=== PATIENT | male | born 1965 | race Hispanic/Latino ===

== ENCOUNTER 2017-08-10 07:43 | Inpatient (IN) | payer MEDICAID, MEDICARE ==
[2017-08-10 08:05] LABS: #Basophils 0.1 thou/uL (0.0-0.2); #Eosinphils 0.4 thou/uL (0.0-0.7); #Lymphocytes 1.9 thou/uL (1.20-3.40); #Monocytes 0.6 thou/uL (0.11-0.59); #Neutrophils 4.6 thou/uL (1.40-6.50); %Basophils 0.7 % (0.0-1.0); %Eosinophils 5.3 % (0.0-10.0); %Lymphocytes 25.6 % (21.0-51.0); %Monocytes 7.8 % (0.0-10.0); %Neutrophils 60.6 % (42.0-75.0); Mean Corpuscular HGB CONC 34.2 g/dL (32.0-36.0); Mean Corpuscular Hemoglobin 31.9 pg (27.0-31.0); Mean Corpuscular Volume 93.5 fl (80.0-94.0); Mean Platelet Volume 10.2 fL (7.4-10.4); Platelet Count 97 thou/uL (130-400); RBC Distribution Width 14.2 % (11.5-14.5); Red Blood Cell (RBC) Count 3.75 mill/uL (4.70-6.10); White Blood Cell (WBC) Count 7.6 thou/uL (4.8-10.8)
[2017-08-10 08:09] LABS: INR-International Normal Ratio 1.1; Prothrombin Time 13.9 SEC (12.0-14.7)
[2017-08-10 08:15] LABS: ALT (SGPT) 8 U/L (8-55); AST (SGOT) 13 U/L (5-34); Albumin 4.4 g/dL (3.5-5.0); Alkaline Phosphatase 108 U/L (40-150); Anion Gap 20 mmol/L (10-20); BUN (Urea Nitrogen) 41 mg/dL (8.9-20.6); Bilirubin, Total 0.6 mg/dL (0.2-1.2); Calc. Creatinine Clearance 0 mL/min (70-130); Calcium 8.9 mg/dL (7.8-10.44); Carbon Dioxide 25 mmol/L (22-29); Chloride 97 mmol/L (98-107); Estimated GFR-MDRD 8; Globulin 3.4 g/dL (2.4-3.5); Glucose 158 mg/dL (70-105); Protein, Total 7.8 g/dL (6.0-8.3); Sodium 138 mmol/L (136-145)
[2017-08-10 08:19] LABS: CKMB 1.6 ng/mL (0-6.6); Troponin I 0.056 ng/mL (< 0.028)
[2017-08-10 08:30] LABS: Bilirubin Negative (Negative); Blood, Urine Trace (Negative); Clarity CLEAR (Clear); Glucose, Urine (Dipstick) 100 mg/dL (Negative); Leukocyte Negative (Negative); Nitrite Negative (Negative); Protein, Urine (Dipstick) 300 mg/dL (Neg-Trace); Specific Gravity, Urine 1.009 (1.002-1.036); Urobilinogen 0.2 mg/dL (0.2-1.0)
[2017-08-10 08:33] LABS: Bacteria/HPF None Seen HPF (None Seen); Hyaline Casts/LPF 0-3 HYALINE CAST LPF (0-3 Hyaline); Pathc Cast-AUWi Flag 0.43 (0-2.49); RBC/HPF 0-3 HPF (0-3); Squamous Epithelial 0-3 HPF (0-3); WBC/HPF 0-3 HPF (0-3)
[2017-08-10 08:39] LABS: Actual Bicarbonate (HCO3a) 27.4 mEq/L (22-28); Base Excess (BEa) -0.4 mEq/L (-2.0 to +3.0); CO2 Tension 60.8 mmHg (35.0-45.0); O2 Tension (PaO2) 64.3 mmHg (80.0-100.0); pH, Arterial 7.28 (7.35-7.45)
[2017-08-10 08:40] LABS: Analyzer IN Cardio ER; Calcium, Ionized 1.1 mmol/L (1.12-1.30); Puncture Site RRA
--- NOTE | 2017-08-10 08:42 | CT ---
CT BRAIN WITHOUT CONTRAST: History: Sudden onset right sided weakness. Patient was last seen normal 20 minutes ago. FINDINGS: Comparison is made with exam of 04-13-12. Acute hemorrhage is seen in the ventricular system and the left cerebral hemisphere (mainly thalamus) . No midline shift or hydrocephalus is seen. The bony calvarium is intact. There is mucosal disease i n the paranasal sinuses. IMPRESSION: Acute intracranial hemorrhage (likely hypertensive). Discussed over the telephone with Emergency Department physician, Dr. Moreno at 7:56 a.m. POS: [facility]K
[2017-08-10 08:52] LABS: Amphetamine Not Detected (NotDetected); Barbiturates Screen Not Detected (NotDetected); Benzodiazepine Screen Not Detected (NotDetected); Cocaine Metabolite Screen Detected (NotDetected); Medtox Reader # READER 1; Methadone Not Detected (NotDetected); Methamphetamine Not Detected (NotDetected); Opiate Screen Detected (NotDetected); Phencyclidine (PCP) Not Detected (NotDetected); THC/Cannabinoid Screen Not Detected (NotDetected); Tricyclic Screen Not Detected (NotDetected)
[2017-08-10 08:53] LABS: Medtox Control Line Valid? VALID (VALID); Oxycodone Screen Not Detected (NotDetected)
[2017-08-10] MEDS ORDERED: Albumin 5% 500 ML ONE (08:53)
[2017-08-10] MEDS ORDERED: Phenylephrine HCL 10 MG/ML VIAL ONE (08:53)
[2017-08-10] MEDS ORDERED: Fentanyl 100 MCG/2 ML VIAL ONE (09:03)
[2017-08-10] MEDS ORDERED: levETIRAcetam 1000 MG/100 ML PREMIX BAG ONE (09:07)
[2017-08-10] MEDS ORDERED: levETIRAcetam 500 MG/100 ML PREMIX BAG ONE (09:07)
[2017-08-10] MEDS ORDERED: Bacitracin Zinc Ointment 30 gm TUBE ONE (09:08)
[2017-08-10] MEDS ORDERED: Lidocaine 0.5%/Epinephrine 1:200,000 50 ml Vial ONE (09:11)
[2017-08-10] MEDS ORDERED: Thrombin 5000 UNITS/5 ML VIAL ONE (09:11)
[2017-08-10] MEDS ORDERED: Mannitol 12.5 GM/50 ML ONE (09:15)
[2017-08-10] MEDS ORDERED: Sodium Chloride 0.9% 10 ML ONE (09:23)
--- NOTE | 2017-08-10 09:36 | RAD ---
PORTABLE CHEST 1 VIEW: DATE: 08/10/17. TIME: 8:28 a.m. HISTORY: Intracranial hemorrhage, respiratory failure. FINDINGS/IMPRESSION: The heart visualized. There is an endotracheal tube with tip at the level of the clavicular heads an d nasogastric tube can be traced into the stomach with tip exclusion. There is bilateral pulmonary e nakul. No pneumothoraces or large effusions are seen. POS: [facility]
[2017-08-10] MEDS ORDERED: Esmolol 100 MG/10 ML VIAL ONE (11:51)
[2017-08-10] MEDS ORDERED: PROPOFOL 200 MG/20 ML VIAL ONE (11:51)
[2017-08-10] MEDS ORDERED: Mag-Al 1200 mg/1200 mg/30 ML UDCUP PO PRN (12:21)
[2017-08-10] MEDS ORDERED: Ondansetron HCl/PF 4 MG/2 ML Vial IVP PRN (12:21)
[2017-08-10] MEDS ORDERED: Docusate 100 MG CAP PO PRN (12:21)
[2017-08-10] MEDS ORDERED: Ventilator Sedation Protocol 1 EACH FS ONE (12:21)
[2017-08-10] MEDS ORDERED: Bisacodyl 10 MG SUPP PR PRN (12:21)
[2017-08-10] MEDS ORDERED: Acetaminophen 325 MG TAB PO PRN (12:21)
[2017-08-10] MEDS ORDERED: Milk Of Magnesia 30 ML UDCUP PO PRN (12:21)
--- NOTE | 2017-08-10 12:31 | PRG ---
DATE OF SERVICE: 08/10/2017 CHIEF COMPLAINT: Large left thalamic hemorrhage with hypertension with intraventricular extension, h ydrocephalus, coma. HISTORY OF PRESENT ILLNESS: Mr. Hart is a 52-year-old man who has a history of renal failure on di alysis, hypertension, and now with a positive toxicology screen with cocaine. He also has an ejectio n fraction of 50-55%. He is on aspirin. He has dialysis Tuesday, Tuesday, and Tuesday. He presente d with neurological decline this morning and a head CT demonstrates a large hemorrhage in the left th alamus with intraventricular extension with full casting of the ventricular system with hydrocephalus . He obviously has had neurological decline and is intubated. On my exam he has a GCS 3T with mid p osition, nonreactive pupils. His neurological decline has been rapid. I had a long discussion with his family and they wish that we be aggressive and as such, I have advoc ated for a left frontal transcortical approach to the ventricle for evacuation of as much of the vent ricular clot as possible with leaving an external ventricular drain behind. The problem of putting i n an external ventricular drain in now is that I think the chance of the drain clotting off is substa ntial. Informed consent was discussed in detail with his family and they understand the risks are up to and including but not limited to wound healing issues, infection, need for further surgery, CSF l eak, medical and surgical complications otherwise, other than what has been mentioned. They understa nd these risks and wish to proceed with surgery and understand the purpose of the surgery is for an a ttempt at lifesaving measures. DIAGNOSES: Large left thalamic hemorrhage with intraventricular extension and hypertension.
[2017-08-10] MEDS ORDERED: Morphine 4 MG/ML VIAL SLOW IVP PRN (13:01)
[2017-08-10] MEDS ORDERED: fentaNYL Citrate/PF 2,000 MCG in Sodium Chloride 0.9% 60 ML IV SCH (13:01)
[2017-08-10] MEDS ORDERED: Lorazepam 2 MG/ML VIAL SLOW IVP PRN (13:01)
[2017-08-10] MEDS ORDERED: Propofol BOLUS 1,000 MG/100 ML VIAL IV PRN (13:01)
[2017-08-10] MEDS ORDERED: Propofol 1,000 MG/100 ML VIAL IV PRN (13:01)
[2017-08-10] MEDS ORDERED: Fentanyl BOLUS 250 ML IVPB PRN (13:01)
[2017-08-10] MEDS ORDERED: DISCONTINUE PREVIOUS NARCOTIC PAIN MEDICATIONS AND BENZODIAZEPINES FS SCH (13:01)
--- NOTE | 2017-08-10 13:04 | OP ---
DATE OF PROCEDURE: 08/10/2017 OR: OR #11. WOUND TYPE: Type 1 wound. SURGEON: Adilson Bhardwaj M.D. SVP CHIEF MARKETING OFFICER: Champ Eli PA-C A modifier 57 should be added to this surgery. The decision to operate was made on the day I saw the patient. PREPROCEDURE DIAGNOSES: Large left thalamic hemorrhage with intraventricular extension, hydrocephalus, neurological decline. POSTPROCEDURE DIAGNOSES: Large left thalamic hemorrhage with intraventricular extension, hydrocephalus, neurological decline. PROCEDURE: 1. Left frontal transcortical approach for a ventricular hematoma evacuation. 2. Fenestration of the septum pellucidum to promote CSF flow. 3. Placement of external ventricular drain through a drill hole. 4. Use of operative microscope for microdissection. DESCRIPTION OF PROCEDURE: After informed consent was obtained from the patient' s family, he was brought to OR 11. Proper patient pause identification was carried out. The right frontal region was identified, hair clipped and this area sterilely cleansed, prepared and draped in the region of the left frontal Jairon's point. The incision was made. It was opened. Following sterile cleansing, preparation and draping, incision was made. The skull was perforated and a circular craniotomy performed. The dura opened in a cruciate fashion. The brain was then entered and a transcortical approach occurred. We identified a thick hematoma in the ventricle and evacuated as much as we possibly could maximizing hemostasis. I fenestrated and opened up the septum pellucidum to evaluate the right ventricular system and hematoma was removed there as well. Copious irrigation occurred throughout. Hemostasis was again maximized and then an EVD was placed through a drill hole into the ventricle and secured following tunneling. The wound was copiously irrigated. A craniotomy flap affixed with plates and screws. Copious irrigation occurred again. The wound was closed in anatomic layers. The patient emerged from anesthesia. [facility]
[2017-08-10 13:25] LABS: Troponin I 0.052 ng/mL (< 0.028)
[2017-08-10] MEDS ORDERED: Dextrose 5% in Water 1,000 ML IV PRN (13:57)
[2017-08-10] MEDS ORDERED: Dextrose 50% Abboject 50 ML SYRINGE SLOW IVP PRN (13:57)
[2017-08-10] MEDS ORDERED: HumaLOG 300 UNITS/3 ML VIAL SC PRN (13:57)
[2017-08-10 13:58] LABS: Actual Bicarbonate (HCO3a) 24.1 mEq/L (22-28); Base Excess (BEa) 0.4 mEq/L (-2.0 to +3.0); CO2 Tension 35.6 mmHg (35.0-45.0); Hemoglobin (Hb) 11.1 g/dL (14.0-18.0); O2 Tension (PaO2) 115.4 mmHg (80.0-100.0); pH, Arterial 7.45 (7.35-7.45)
[2017-08-10 13:59] LABS: Puncture Site RRA
[2017-08-10] MEDS: CEFAZOLIN/Water 2 G/20 ML 2 GM in Pre-Filled Syringe 1 EACH SLOW IVP SCH ×2 (14:26→21:03)
[2017-08-10] MEDS: niCARdipine 20MG in NaCl 200 ML BAG IVPB PRN ×2 (14:26→16:26)
--- NOTE | 2017-08-10 15:26 | CT ---
HEAD CT WITHOUT CONTRAST: DATE: 08/10/17. TIME: 2:41 p.m. COMPARISON: 08/10/17 at 7:51 a.m. HISTORY: Minimal EVD drainage. Intracranial hemorrhage. TECHNIQUE: Serial axial CT imaging at 5 mm intervals from the vertex through the skull base without contrast. FINDINGS: Since the prior examination, there has been development of [id number] midline shift measuring 7 mm at the level of the septum pellucidum. The ventricles have enlarged in size when compared to the pr ior examination as well, with new significant dilation of the temporal horns of the lateral ventricle s as well as the third ventricle and the body of bilateral lateral ventricles. There is extensive in traventricular hemorrhage which is seen throughout both lateral ventricles, left greater than right, and extends into the 3rd and 4th ventricles. There is extensive hemorrhage along the course of the n ew EVD, which was inserted via a left frontal approach. Scalp swelling and scalp clips/roberta noted on the left. There is new gas within the anterior horn of bilateral lateral ventricles and there is new subdural gas in the left frontal and left temporal regions. There is an intraparenchymal hemorrhage centered in the thalamus on the left measuring 4.7 cm in hernandez sverse dimension, enlarged when compared to prior imaging. IMPRESSION: Interval placement of external ventricular drain via left frontal approach. New development of left- to-right midline shift and new ventriculomegaly suggesting obstructive hydrocephalus. The intraaxial hemorrhage centered in the left thalamus has enlarged and there is new intraparenchymal hemorrhage a long the course of the external ventricular drain. Results were related to Dr. Bhardwaj at approximately 2:45 p.m. 08/10/17. CODE CR POS: RK
--- NOTE | 2017-08-10 15:36 | PDOC.FPRHP ---
- History of Present Illness Chief Complaint: Focal weakness, changing mental status History of Present Illness: Resident Consultation Note Date Seen: 08/10/17 Time Seen: 1310 Reason for Consultation: Medical Management Mr. Hart is a 52 year old male with a known history of ESRD on HD, CHF (EF 50-55% 03/2016 but had LVH), HTN, DM2, chronic back pain, and polysubstance abuse who presented to the ED today via EMS for motor deficits and rapid neurologic decline. He was normal when he woke this morning and was speaking to his but reported feeling unwell. He then told his the right side of his face was weak and numb. He then progressed to right sided weakness. When EMS arrived patietn was A&Ox1. Patient arrived via ambulance to [facility] ED. Was seen by Dr. Meek Moreno who noted the patient was A&Ox0, tachycardic, hypertensive, lethargic, had unequal pupils, and had R hemiplegia. Patient was intubated. CT brain confirmed intracranial bleed. Patient was taken to the OR by Dr. Bhardwaj with neurosurgery and had a ventricular hematoma evacuation, fenestration of septum pellucidum, and external ventricular drain placement. Patient was then transferred to CCU and was noted to follow commands by opening his eyes and moving his left sided extremities. Neurosurgery consulted the [facility] Medicine team for medical management at that time. Patient was intubated and sleeping at time of my exam. History is based on ER records and review of previous admission records. - Allergies/Adverse Reactions Allergies Allergy/AdvReac Type Severity Reaction Status Date / Time baclofen AdvReac SEDATION Unverified 04/17/16 16:43 - Home Medications Medication Instructions Recorded Confirmed Type Insulin Aspart [NovoLOG FlexPen] 5 unit SC TID-WM 05/17/14 04/17/16 History Insulin Detemir 100 UNITS/ML 20 units SC HS 05/17/14 04/17/16 History [Levemir] Zolpidem Tartrate [Ambien] 5 mg PO HS PRN 05/17/14 04/17/16 History Levothyroxine Sodium [Synthroid] 50 mcg PO DAILY 03/18/15 04/17/16 History Carvedilol [Coreg] 12.5 mg PO BID 05/13/15 04/17/16 History HYDROcodone Bit/APAP 10/325 [[place]] 1 tab PO Q6HR PRN 05/13/15 04/17/16 History Allopurinol [Zyloprim] 100 mg PO DAILY #0 tablet 05/17/15 04/17/16 Rx Aspirin 81 mg PO DAILY #0 tab 04/17/16 Rx Calcium Acetate [Phoslo] 1,334 mg PO TID-WM 04/17/16 04/17/16 History Esomeprazole Magnesium [Nexium 40 mg PO DAILY 04/17/16 04/17/16 History 24Hr] Folic Acid/Vit B Complex and C 1 tablet PO DAILY 04/17/16 04/17/16 History [Dialyvite] Lisinopril [Zestril] 20 mg PO DAILY 04/17/16 04/17/16 History Pravastatin Sodium [Pravachol] 40 mg PO HS 04/17/16 04/17/16 History - History PMHx: ESRD on HD, DM2, HTN, questionable history of CHF, chronic back pain, history of polysubstance abuse PSHx: Left forearm dialysis fistula, cholecystectomy FHx: Unknown Social: Lives with . Known history of cocaine and methamphetamine abuse per review of records - Review of Systems ROS unobtainable: due to mental status - Vital signs BP: [] HR: [] RR: [] Tmax: [] Pox: []% on [] Wt: [] - Physical Exam Constitutional: well developed -Constitutional: Intubated. Somnolent HEENT: PERRLA, no scleral icterus -HEENT: Endotracheal tube in place Neck: trachea midline, no thyromegaly Chest: no lesions Heart: RRR, normal S1/S2, no murmurs/rubs/gallops, pulses present, no edema Lungs: CTAB, good air movement -Lungs: Faint bibasilar rales Abdomen: soft, bowel sounds present, no masses/distention, no hernias Musculoskeletal: normal structure, normal tone, ROM grossly normal Neurological: DTRs 2+ -Neurological: GCS [id number]. Spontaneously moves LUE and LLE and moves on command. Opens eyes on command. Skin: no rash/lesions, good turgor, capillary refill <2 seconds Heme/Lymphatic: no unusual bruising or bleeding, no purpura FMR H&P: Results - Labs Result Diagrams: 08/10/17 07:49 08/10/17 07:48 Lab results: WBC 7.6 thou/uL (4.8-10.8) 08/10/17 07:49 Hgb 12.0 g/dL (14.0-18.0) L 08/10/17 07:49 Hct 35.1 % (42.0-52.0) L 08/10/17 07:49 MCV 93.5 fl (80.0-94.0) 08/10/17 07:49 Plt Count 97 thou/uL (130-400) L 08/10/17 07:49 Neutrophils % 60.6 % (42.0-75.0) 08/10/17 07:49 ABG pH 7.45 (7.35-7.45) 08/10/17 13:50 ABG pCO2 35.6 mmHg (35.0-45.0) 08/10/17 13:50 ABG pO2 115.4 mmHg (80.0-100.0) H 08/10/17 13:50 Sodium 138 mmol/L (136-145) 08/10/17 07:48 Potassium 4.0 mmol/L (3.5-5.1) 08/10/17 07:48 Chloride 97 mmol/L (98-107) L 08/10/17 07:48 Carbon Dioxide 25 mmol/L (22-29) 08/10/17 07:48 BUN 41 mg/dL (8.9-20.6) H 08/10/17 07:48 Creatinine 7.14 mg/dL (0.6-1.3) H 08/10/17 07:48 Glucose 158 mg/dL (70-105) H 08/10/17 07:48 Calcium 8.9 mg/dL (7.8-10.44) 08/10/17 07:48 Total Bilirubin 0.6 mg/dL (0.2-1.2) 08/10/17 07:48 AST 13 U/L (5-34) 08/10/17 07:48 ALT 8 U/L (8-55) 08/10/17 07:48 Alkaline Phosphatase 108 U/L (40-150) 08/10/17 07:48 CK-MB (CK-2) 1.6 ng/mL (0-6.6) 08/10/17 07:48 Serum Total Protein 7.8 g/dL (6.0-8.3) 08/10/17 07:48 Albumin 4.4 g/dL (3.5-5.0) 08/10/17 07:48 Urine Ketones Negative mg/dL (Negative) 08/10/17 08:17 Urine Blood Trace (Negative) H 08/10/17 08:17 Urine Nitrite Negative (Negative) 08/10/17 08:17 Ur Leukocyte Esterase Negative (Negative) 08/10/17 08:17 Urine RBC 0-3 HPF (0-3) 08/10/17 08:17 Urine WBC 0-3 HPF (0-3) 08/10/17 08:17 Ur Squamous Epith Cells 0-3 HPF (0-3) 08/10/17 08:17 Urine Bacteria None Seen HPF (None Seen) 08/10/17 08:17 - Radiology Interpretation Chest x-ray Status: image reviewed by me, report reviewed by me Additional comment: Bilateral pulmonary edema CT scan - head Status: report reviewed by me Additional comment: Intracranial hemorrhage FMR H&P: A/P - Problem List (1) Thalamic hemorrhage Current Visit: Yes Status: Acute Priority: High Code(s): I61.0 - NONTRAUMATIC INTCRBL HEMORRHAGE IN HEMISPHERE, SUBCORTICAL Assessment and Plan: Hospital Day #0 - Associated with ventricular extension, hydrocephalus, neurologic decline - S/P hematoma evacuation, fenestration of septum pellucidum, and external ventricular drain placement on 08/10 - Admitted to CCU by neurosurgery - Residents consulted for medical management - appreciate the opportunity to participate in this case - Strict BP control per neurosurgery - keep SBP <150. Cardene ordered by neurosurgery team. Will monitor closely and treat prn. - Pulmonology (Dr. Romo) consulted - Stroke team consulted (2) End-stage renal disease on hemodialysis Current Visit: Yes Status: Chronic Priority: Medium Code(s): N18.6 - END STAGE RENAL DISEASE; Z99.2 - DEPENDENCE ON RENAL DIALYSIS Assessment and Plan: MWF dialysis per record review. Nephrology consulted - patient sees Dr. Zabala. Nursing reports patient had dialysis on Tuesday (3) Pulmonary edema Current Visit: Yes Status: Acute Priority: High Code(s): J81.1 - CHRONIC PULMONARY EDEMA Qualifiers: Chronicity: acute Qualified Code(s): J81.0 - Acute pulmonary edema Assessment and Plan: CHF with exacerbation vs fluid overload 2/2 ESRD. Will check BNP and TTE (4) Troponin level elevated Current Visit: Yes Status: Acute Priority: High Code(s): R74.8 - ABNORMAL LEVELS OF OTHER SERUM ENZYMES Assessment and Plan: Indeterminate range at this time and no acute ischemic changes per my review of EKG. Will repeat cardiac enzymes. Heart failure and chronic kidney disease could both contribute to elevation in troponin - CK-MB was wnl. (5) CHF (congestive heart failure) Current Visit: Yes Status: Chronic Code(s): I50.9 - HEART FAILURE, UNSPECIFIED Qualifiers: Heart failure type: unspecified Heart failure chronicity: unspecified Qualified Code(s): I50.9 - Heart failure, unspecified Assessment and Plan: Last echo was March 2016 - EF was 50-55% with concentric LVH, moderate aortic stenosis, and no mention of diastolic dysfunction in that report. Will get TTE. Checking BNP but that could be elevated in the setting of ESRD (6) DM2 (diabetes mellitus, type 2) Current Visit: Yes Status: Chronic Priority: Medium Qualifiers: Diabetes mellitus alf insulin use: with alf use Assessment and Plan: Accuchecks and mild sliding scale insulin for now. Will adjust insulin as needed. (7) Hypertension Current Visit: No Status: Chronic Priority: Medium Code(s): I10 - ESSENTIAL (PRIMARY) HYPERTENSION Qualifiers: Hypertension type: essential hypertension Qualified Code(s): I10 - Essential (primary) hypertension Assessment and Plan: Strict BP control as listed in #1 (8) Polysubstance abuse Current Visit: Yes Status: Chronic Priority: Medium Code(s): F19.10 - OTHER PSYCHOACTIVE SUBSTANCE ABUSE, UNCOMPLICATED Assessment and Plan: Direct Sales Consultant on cessation when extubated - Plan Plan as above - We will continue follow along with the primary team and assist in medical management. - Again, we appreciate the consultation. Disposition/LOS: Anticipated length of stay - More than 3 days FMR H&P: Upper Level - Plan Date/Time: 08/10/17 1519 I, [], have evaluated this patient and agree with findings/plan as outlined by employee communications intern resident. Pertinent changes/additions are listed here.
[2017-08-10 17:21] LABS: CKMB 2.5 ng/mL (0-6.6); Troponin I 0.066 ng/mL (< 0.028)
[2017-08-10 18:59] LABS: HBSAg Index 0.15 S/CO (0-0.99); Hep B Surf Ag Non-Reactive S/CO (NonReactive)
--- NOTE | 2017-08-10 20:46 | PRG ---
DATE OF SERVICE: 08/10/2017 Postoperatively, Mr. Hart started to open his eyes to voice and follow commands, weakly on the left, this was intermittent; however, his EVD had ceased functioning due to a large amount of clot in the line and this was troubleshot but unsuccessful. A repeat head CT demonstrated hemorrhage around the EVD and also recurrence of hemorrhage into his ventricles with enlargement of his ventricular system consistent with hydrocephalus. This is after we had just completed evacuating his hematoma. This simply speaks to the friable vascularity from his longstanding hypertension, cocaine use, poor renal function and coagulopathy. Essentially, at this point, what I think we should do is place a right-sided ventricular drain to try and get some sort of treatment of his hydrocephalus. I would not advocate going back into his head to evacuate the hematoma as I think he would simply bleed again. He has thrombocytopenia and as such, we will also give a 6-pack platelets, and I have spoken with Nephrology and they will also give the platelets during dialysis today, which hopefully helps his uremia as I suspect it is affecting his coagulopathy. I have updated his that his prognosis is poor at this point , but I think we should continue aggressive management. MTDD
--- NOTE | 2017-08-10 21:01 | HP ---
I have discussed the case with Dr. Sharath Thomas and agree with his assessment and plan. HISTORY OF PRESENT ILLNESS: Mr. Hart is a 52-year-old male with a long history of diabete s, hypertension, some drug use, and is on hemodialysis. He awoke this morning, able to talk to his w jerson, but then started "feeling weird." His face went weak and numb. EMS was called and he was orien omar x1 at the scene, but became completely disoriented later. He was seen in the emergency room wher e an emergent CT revealed an intracranial bleed. Neurosurgery was consulted and immediately took Mr. Hart to surgery. We will follow with him to help manage blood pressure and particularly his diabe katiuska. PHYSICAL EXAMINATION: VITAL SIGNS: On initial physical exam, his blood pressure was initially 220/140. A Cardene drip was initiated. As stated, he was becoming progressively worse and had an initial GCS of 8. HEAD: Atraumatic. EYES: Pupils unequal and reactive to light. EOMs are not intact. NECK: Supple. CARDIAC: PMI was in the fifth intercostal space. No gallop or murmur noted. LUNGS: Breath sounds were diminished, but clear without rales or wheezes. ABDOMEN: Obese, but flat, soft. No guarding, rebound, or rigidity. EXTREMITIES: No cyanosis or edema. LABORATORY DATA: The initial labs are not yet available. CT showed intracranial bleed. ASSESSMENT: Intracranial bleed in a patient with multiple risk factors. PLAN: Neurosurgery has been consulted and is taking the patient to surgery. We will follow with Kurt cohen to help with blood pressure control and diabetes control. We also discussed the case nicolejavad sotomayor with the neurosurgeon and his PA.
--- NOTE | 2017-08-10 22:51 | CON ---
DATE OF CONSULTATION: 08/10/2017 HISTORY OF PRESENT ILLNESS: Tanner is a 52-year-old gentleman who presented with an acute onset of h eadache and right-sided weakness. CT of the head revealed a large intracranial hemorrhage in the lef t cerebral hemisphere. He has right-sided upper and lower extremity weakness. He had cocaine in his urine toxicology done n umerous time, every time he has come to the hospital, he has had some kind of substance in his urine including cocaine and at one time he had meth. His is at the bedside and gives adequate history who states that the primary care doctor is from [place]. 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 Face was numb, brought to the ER where a CAT scan reveals a left-sided intracerebral hemorrhage. He was taken straight to the OR by Dr. Bhardwaj, has a vent trach in place. In the ICU, he is awake. Eyes are equal. Pupils are equal. He is not moving the right side, though he is moving his left side. Additional information is that, PAST MEDICAL HISTORY: Chronic renal failure for a year and half, he underwent a renal biopsy about a year and a half for which complicated by significant hemorrhage. He has access in his left fistula. Past medical history otherwise substance abuse from previous chart, hypertension, diabetes. He has history of hepatitis C and hypothyroidism. SOCIAL HISTORY: Minimal alcohol, no tobacco. PAST SURGICAL HISTORY: Cholecystectomy access, left knee surgery. MEDICATIONS: From home, Ambien, Pravachol 40, lisinopril 20, Synthroid 50, insulin 20, hydrocodone, Coreg 12.5, aspirin, allopurinol. REVIEW OF SYSTEMS: Otherwise unobtainable. 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 PHYSICAL EXAMINATION: GENERAL: He is intubated on the vent. VITAL SIGNS: Blood pressure 150/80, pulse is 87, respirations 20, sats 100%. CHEST: Reveals no wheezing. Minimal rhonchi. CARDIAC: Normal S1, S2, no gallops. ABDOMEN: Soft, no masses. LABORATORY AND X-RAY FINDINGS: X-ray shows pulmonary edema. White count 7000, H&H 12 and 35, platel et count is low at 97. He had thrombocytopenia for a period of time. PO2 was 64, pCO2 of 28, 31% Fi O2. His toxicology urine shows cocaine. IMPRESSION: 1. Status post craniotomy. 2. Large left thalamic hemorrhage, intraventricular extension. 3. Diabetes. 4. Renal failure. 5. Thrombocytopenia. 6. Hepatitis C. 7. Cocaine abuse. PLAN: Continue vent support until relatively stable. He needs dialysis today. Pulmonary Critical Care will follow while in the ICU. Hopefully, to wean a nd extubate in the next several days. This is a 45 minutes critical care time.
[2017-08-11] MEDS ORDERED: Fosphenytoin Sodium 1,500 MG in Sodium Chloride 0.9% 50 ML IVPB SCH (02:45)
[2017-08-11] MEDS ORDERED: Lorazepam 2 MG/ML VIAL SLOW IVP SCH (02:45)
[2017-08-11] MEDS: HumaLOG 300 UNITS/3 ML VIAL SC PRN ×4 (02:49→09:58)
--- NOTE | 2017-08-11 03:47 | CON ---
DATE OF CONSULTATION: 08/10/2017 CONSULTING PHYSICIAN: Dr. Monahan and Dr. Thomas from [facility]. REASON FOR CONSULTATION: End-stage renal disease evaluation and care. REASON FOR ADMISSION: Altered mentation. HISTORY OF PRESENT ILLNESS: This is a 52-year-old male with history of end-stage renal dise ase on hemodialysis Tuesday, Tuesday, and Tuesday; CHF; hypertension; type 2 diabetes; substance abus e; came to the hospital with motor deficits and rapid neurological decline. The patient was found to have a right hemiplegia in the ER and a CT scan showed intracranial bleed. The patient was taken to the OR and had a surgery. The patient was seen in the ICU and intubated. I talked with the al so, the patient not able to give a history. No fever or chills. No nausea, vomiting, diarrhea. The patient was positive for cocaine. He is due for dialysis today. PAST MEDICAL HISTORY: Positive for end-stage renal disease, type 2 diabetes, hypertension, CHF, and polysubstance abuse. PAST SURGICAL HISTORY: Dialysis access placement, cholecystectomy. HOME MEDICATIONS: Include Ambien, Pravachol, lisinopril, Synthroid, Levemir, Trona, Nexium, carvedil ol, PhosLo, aspirin. ALLERGIES: BACLOFEN. SOCIAL HISTORY: No smoking, alcohol or illicit drug abuse. FAMILY HISTORY: No history of any kidney disease. REVIEW OF SYSTEMS: The following complete review of systems was negative, unless otherwise mentioned in the HPI or below: Constitutional: Weight loss or gain, ability to conduct usual activities. Sk in: Rash, itching. Eyes: Double vision, pain. ENT/Mouth: Nose bleeding, neck stiffness, pain, te nderness. Cardiovascular: Palpitations, dyspnea on exertion, orthopnea. Respiratory: Shortness of breath, wheezing, cough, hemoptysis, fever or night sweats. Gastrointestinal: Poor appetite, abdom inal pain, heartburn, nausea, vomiting, constipation, or diarrhea. Genitourinary: Urgency, frequenc y, dysuria, nocturia. Musculoskeletal: Pain, swelling. Neurologic/Psychiatric: Anxiety, depressio n. Allergy/Immunologic: Skin rash, bleeding tendency. PHYSICAL EXAMINATION: GENERAL: This is an obese male, in no apparent distress. VITAL SIGNS: Temperature 98.4, pulse 88, respirations 16, blood pressure 139/85. HEENT: Intubated. CARDIOVASCULAR: S1, S2 heard. Rate and rhythm regular. RESPIRATORY: Clear. GASTROINTESTINAL: Abdomen is soft. MUSCULOSKELETAL: No tenderness. No edema. DERMATOLOGIC: No skin rash. NEUROLOGICAL: Intubated and sedated. LABORATORY DATA: Hemoglobin is 12.0, platelets 97. Potassium 4.0, BUN is 41, creatinine is 7.1. ASSESSMENT AND PLAN: 1. End-stage renal disease on hemodialysis. We will continue on dialysis Tuesday, Tuesday, and Tue day. 2. Edema, controlled. 3. Hypertension, remove fluid if tolerated. 4. Anemia. Hemoglobin is stable. We will have dialysis if tolerated. Keep systolic blood pressure on 130s to 140s. The patient with poor prognosis. Family was updated. Case also discussed with Dr. Bhardwaj.
[2017-08-11] MEDS: CEFAZOLIN/Water 2 G/20 ML 2 GM in Pre-Filled Syringe 1 EACH SLOW IVP SCH ×3 (05:02→21:15)
[2017-08-11 05:23] LABS: Anion Gap 25 mmol/L (10-20); BUN (Urea Nitrogen) 26 mg/dL (8.9-20.6); Calc. Creatinine Clearance 23 mL/min (70-130); Calcium 10.1 mg/dL (7.8-10.44); Carbon Dioxide 26 mmol/L (22-29); Chloride 93 mmol/L (98-107); Estimated GFR-MDRD 10; Glucose 195 mg/dL (70-105); Potassium 4.2 mmol/L (3.5-5.1); Sodium 140 mmol/L (136-145)
[2017-08-11 05:53] VITALS: BMI 32.3
[2017-08-11 06:55] LABS: Band 1 % (5-11); Hemoglobin 13.6 g/dL (14.0-18.0); Lymphocytes 4 % (21-51); MDiff Complete? YES; Mean Corpuscular HGB CONC 33.4 g/dL (32.0-36.0); Mean Corpuscular Hemoglobin 31.3 pg (27.0-31.0); Mean Corpuscular Volume 93.5 fl (80.0-94.0); Mean Platelet Volume 11.4 fL (7.4-10.4); Monocytes 5 % (0-10); Neutrophil 89 % (42-75); PLT Morphology Comment Appears Adequate; Platelet Count 142 thou/uL (130-400); RBC Distribution Width 14.3 % (11.5-14.5); RBC Morphology Normal; Red Blood Cell (RBC) Count 4.35 mill/uL (4.70-6.10); White Blood Cell (WBC) Count 14.9 thou/uL (4.8-10.8)
[2017-08-11 07:10] LABS: CO2 Tension 34.3 mmHg (35.0-45.0); pH, Arterial 7.54 (7.35-7.45)
[2017-08-11 07:11] LABS: Actual Bicarbonate (HCO3a) 28.8 mEq/L (22-28); Base Excess (BEa) 6.4 mEq/L (-2.0 to +3.0); Hematocrit-ABG 43.2 % (42.0-52.0); Hemoglobin (Hb) 13.1 g/dL (14.0-18.0); O2 Tension (PaO2) 83.9 mmHg (80.0-100.0)
[2017-08-11 07:12] LABS: ALV-art Gradient 156.425 (0-20); Puncture Site RR
--- NOTE | 2017-08-11 08:00 | PDOC.FM ---
- Subjective Subjective: POD #1 s/p ventricular evacuation and bilateral ventricular drain placement. Patient initially had neurological improvement in the immediate post op period but quickly deteriorated. Repeat CT head showed left to right midline shift 2/2 obstructive hydrocephalus as well as extension of prior hemorrhage. At this time , both ventricular drains have clotted off. Patient is off sedation and has required Ativan due to seizures. He is no longer on the Cardene gtt and maintaining blood pressures just below thresholds set by neurosurgery. Per nursing, when the patients blood pressure increases he is posturing but otherwise not following commands. - Objective MAR Reviewed: Yes Vital Signs & Weight: Vital Signs (12 hours) Temp Pulse Resp BP Pulse Ox 08/11/17 07:44 131 H 151/113 H 08/11/17 06:00 23 H 08/11/17 04:00 100.8 F H 17 08/11/17 02:06 105 H 137/96 H 08/11/17 02:00 21 H 08/11/17 00:00 99.9 F H 23 H 08/10/17 22:11 91 143/94 H 08/10/17 22:00 19 08/10/17 21:06 98.4 F 17 100 08/10/17 20:50 98.4 F 16 100 08/10/17 20:00 99.2 F 89 21 H 99 Weight Weight 96.3 kg Most Recent Monitor Data Heart Rate from ECG 122 NIBP 155/103 NIBP BP-Mean 129 Respiration from ECG 24 SpO2 100 I&O: 08/10/17 08/11/17 08/12/17 06:59 06:59 06:59 Intake Total 340 0 Output Total 877 10 Balance -537 -10 Result Diagrams: 08/11/17 04:31 08/11/17 04:31 Radiology Reviewed by me: Yes (improvement in pulmonary vascular congestion) <Desean Bess - Last Filed: 08/11/17 10:33> - Objective Vital Signs & Weight: Vital Signs (12 hours) Temp Pulse Resp BP Pulse Ox 08/11/17 10:00 24 H 08/11/17 08:00 23 H 08/11/17 07:44 131 H 151/113 H 08/11/17 07:32 99.3 F 151 H 23 H 100 08/11/17 06:00 23 H 08/11/17 04:00 100.8 F H 17 06/14/18 02:06 105 H 137/96 H 08/11/17 02:00 21 H 08/11/17 00:00 99.9 F H 23 H Weight Weight 96.3 kg Most Recent Monitor Data Heart Rate from ECG 105 NIBP 123/91 NIBP BP-Mean 108 Respiration from ECG 23 SpO2 100 I&O: 08/10/17 08/11/17 08/12/17 06:59 06:59 06:59 Intake Total 340 0 Output Total 877 30 Balance -537 -30 Result Diagrams: 08/11/17 04:31 08/11/17 04:31 <Janak Flores - Last Filed: 08/11/17 10:58> Phys Exam - Physical Examination intubated and unresponsive trachea midline; no JVD Respiratory: no wheezing, no rales, no rhonchi Cardiovascular: RRR, no significant murmur Gastrointestinal: soft, non-tender, no distention Musculoskeletal: no edema no withdrawal from pain; absent corneal and gag reflex Skin: no rash <Desean Bess - Last Filed: 08/11/17 10:33> Dx/Plan (1) Thalamic hemorrhage Code(s): I61.0 - NONTRAUMATIC INTCRBL HEMORRHAGE IN HEMISPHERE, SUBCORTICAL Status: Acute Plan: Awoke on morning of admission with R sided numbness and weakness that rapidly progressed. Intubated in ER and taken to OR per neurosurgery for emergent craniotomy and ventricular evacuation 2/2 ICH. -POD #1 -repeat CT done post-op shows further extension of hemorrhage -no further surgery per NS -R and L sided ventricular drains are now clotted off -no longer on cardene gtt, BP appropriate at this time -no longer on sedation, not following commands (2) Acute respiratory failure with hypoxia Code(s): J96.01 - ACUTE RESPIRATORY FAILURE WITH HYPOXIA Status: Acute Plan: -intubated in ED by anesthesia -SIMV/12/500cc/40%/12/02 -AB.54/34/84 (3) End-stage renal disease on hemodialysis Code(s): N18.6 - END STAGE RENAL DISEASE; Z99.2 - DEPENDENCE ON RENAL DIALYSIS Status: Chronic Plan: -dialysis on MWF with L fistula access -received dialysis yesterday with one unit of platelets -nephrology managing -I/O show a net fluid balance of -537mL (4) Hypertension Code(s): I10 - ESSENTIAL (PRIMARY) HYPERTENSION Status: Chronic QualifierTitle: Hypertension type: essential hypertension Qualified Code( s): I10 - Essential (primary) hypertension Plan: -maintain SBP below 150 mmHg per NS -off cardene gtt (5) Thrombocytopenia Code(s): D69.6 - THROMBOCYTOPENIA, UNSPECIFIED Status: Acute Plan: -s/p 1u platelets yesterday with plt count of 142 this AM (6) Troponin level elevated Code(s): R74.8 - ABNORMAL LEVELS OF OTHER SERUM ENZYMES Status: Acute Plan: -troponins in indeterminate range -likely 2/2 demand given BNP of 4500 (7) CHF (congestive heart failure) Code(s): I50.9 - HEART FAILURE, UNSPECIFIED Status: Chronic QualifierTitle: Heart failure type: unspecified Heart failure chronicity : unspecified Qualified Code(s): I50.9 - Heart failure, unspecified Plan: -TTE done this morning, pending the read -BNP of 4500 -CXR improved compared to admission (8) DM2 (diabetes mellitus, type 2) Status: Chronic QualifierTitle: Diabetes mellitus terminal make up operator insulin use: with usp use Plan: -home regimen includes Levemir 20u SC HS and Novolog 5u TID-WM -will continue SSI and accuchecks qAC/HS -7u coverage given yesterday -BS appropriate since admission (9) Polysubstance abuse Code(s): F19.10 - OTHER PSYCHOACTIVE SUBSTANCE ABUSE, UNCOMPLICATED Status: Chronic Plan: -cocaine positive on admission with history of methamphetamine use as well - Plan Plan: Extremely poor prognosis. Neurosurgery recommends no further intervention at this time, but will re-evaluate today and discuss situation with family. Palliative care consult may be in order. We will continue to manage medically. We appreciate the consult. <Desean Bess - Last Filed: 08/11/17 10:33> Attending Addendum - Attending Addendum Date/Time: 08/11/17 2422 I personally evaluated the patient and discussed the management with Dr. Bess. I agree with and repeated the History, Examination, Assessment and Plan documented above with any addition or exceptions noted below. Pt not sedated but with no purposeful movements. + posturing, upgoing toes. Lungs CTAB, tachy, regular, without murmur, no edema. Continue neurochecks, no additional therapy per neurosx. Continue lung protective ventilation. Cardene PRN as ordered. GI ppx. Monitor I&O's. + fever but suspect neurocause, low suspicion of infection currently. Palliative consulted. Discussed poor prognosis with who is at bedside. <Janak Flores - Last Filed: 08/11/17 10:58>
--- NOTE | 2017-08-11 08:01 | RAD ---
PORTABLE SUPINE FRONTAL CHEST RADIOGRAPH: Date: 08/11/17 COMPARISON: 08/10/17. HISTORY: Ventilated patient. FINDINGS: Stable endotracheal tube and nasogastric tube. Supine imaging limits assessment for pleural fluid and pneumothorax. Cardiac silhouette is prominent. There has been marked interval improvement in aeration within both lungs with near complete resolutio n of the previously noted interstitial and alveolar opacities. IMPRESSION: Marked interval improvement in pulmonary parenchymal aeration bilaterally with mild residual density seen in the left lung base. POS: YENNI
--- NOTE | 2017-08-11 08:09 | PRG ---
DATE OF SERVICE: 08/11/2017 Mr. Hart remains intubated on the vent. Unresponsive. His 2 intracranial drains have apparently b een clotted off. Neurosurgery is trying to flush them out. PHYSICAL EXAMINATION: VITAL SIGNS: Pulse is 131, blood pressure is 151/113. He was dialyzed yesterday. Respirations 20. His I's and O's are 340 in, temperature 100.8. CHEST: Chest revealed decreased breath sounds, no wheezing. CARDIAC: Normal S1, S2, no gallops. ABDOMEN: No masses. White count 14,000, H&H 13 and 40, platelet count 42, pO2 is 83, pCO2 of 37.54, rate of 12, 500 tidal volume, 40%. Creatinine is 5.8. IMPRESSION: 1. Status post intracerebral hemorrhage. 2. Respiratory failure. 3. Chronic renal failure. 4. Substance abuse. PLAN: He is not weanable at this stage. We will continue supportive care, PT. We will follow. Inci dentally chest x-ray looks much improved. One-half hour critical care time.
--- NOTE | 2017-08-11 10:51 | CT ---
CT BRAIN: COMPARISON: 08/10/17. HISTORY: Possible clot in drain, EVD placement, intracranial hemorrhage. TECHNIQUE: Serial axial CT imaging obtained at 5 mm intervals from the vertex through the skull base without con trast. FINDINGS: An intraaxial hemorrhage is again noted in the thalamus/basal ganglia on the left, now measuring up t o 5.1 cm, further increased when compared to prior imaging, including the 08/10/17 CT at which time it measured 4.7 cm. There is worsening midline shift from left to right measuring approximately 9-10 m m at the level of the 3rd ventricle. There is gas within the temporal horn of the right lateral vent ricle and the frontal horn of the left lateral ventricle. There is a stable EVD inserted via a left frontal approach with distal tip extending into frontal horn right lateral ventricle with extensive hemorrhage along the course of the drain. There is a new right frontal ventriculostomy tube which te rminates in the region of the frontal horn of the left lateral ventricle. The tip of the new right E VD approaches the frontal horn but may terminate above the frontal horn. This is difficult to distin guish as there is blood both in the ventricle as well as within the brain parenchyma adjacent to the ventricle in this region. Ventriculomegaly involving lateral ventricles and 3rd ventricle persists, not significantly changed. There is bilateral uncal herniation. There is hemorrhage along the cours e of the new right EVD as well. Results were relayed to Dr. Bhardwaj while in the operating room at 9: 15 a.m. 08/11/17. IMPRESSION: Extensive intraventricular hemorrhage with enlarging intraaxial hemorrhage in the region of the left thalamus. There is hemorrhage along the course of bilateral ventriculostomy tubes. The exact locati on of the distal tip of right external ventricular drain is uncertain as described above. Worsening mass effect with worsening subfalcine herniation and bilateral uncal herniation noted. CODE CR POS: RK
--- NOTE | 2017-08-11 13:00 | PRG ---
DATE OF SERVICE: 08/11/2017 SUBJECTIVE: Unfortunately, Mr. Hart has started to develop bleeding from all of his incisions and head CT demonstrates now a hemorrhage around the right- sided EVD, all consistent with fulminant coagulopathy. Despite the 2 EVDs being in the ventricles, they have both clotted off. Neurologically, there was concern of seizure activity. This was stopped overnight with the initiation of Ativan and loading of fosphenytoin. I have let the family know that on exam, his exam continues to remain poor. He has extensor posturing now and while he does withdraw with a GCS of 6T, his exam is poor. His EVDs are no longer functioning. His head CT looks catastrophic. He is developing worsening coagulopathy. Frankly, I think we are dealing with a patient with multiple years of drug abuse and poor medical status and I think at this point he is likely going to succumb due to these associated complications of his cranial hemorrhage and metabolic abnormalities. MTDD
[2017-08-11] MEDS: niCARdipine 20MG in NaCl 200 ML BAG IVPB PRN (13:16)
--- NOTE | 2017-08-11 13:43 | PRG ---
DATE OF SERVICE: 08/11/2017 SUBJECTIVE: The patient was seen and examined at bedside, family at the bedside. The patient is not waking up. He still remains intubated and his prognosis is guarded per Neurosurgery. OBJECTIVE: GENERAL: This is an obese male seen in ICU, intubated. VITAL SIGNS: Temperature 99.3, pulse 103, respiratory 14, blood pressure 140/99. HEENT: Intubated. CARDIOVASCULAR: S1, S2 heard. RESPIRATORY: Clear. GASTROINTESTINAL: Abdomen is soft. MUSCULOSKELETAL: No tenderness. DERMATOLOGIC: No skin rash. NEUROLOGIC: Intubated and not responding. LABORATORY DATA: Potassium is 4.2, BUN is 26, creatinine is 5.8. ASSESSMENT AND PLAN: 1. End-stage renal disease on hemodialysis. Continue dialysis if tolerated. 2. Intracranial bleed with poor prognosis and life-threatening. 3. Edema. 4. Hypertension, stable. 5. Anemia. Overall, the patient does have a very, very poor prognosis. We will follow. Family updated.
[2017-08-11] MEDS ORDERED: Morphine 10 MG/ML VIAL SLOW IVP PRN (15:00)
[2017-08-11 15:26] VITALS: BP 126/89
[2017-08-11 20:06] VITALS: TEMP 99.7
--- NOTE | 2017-08-15 14:09 | DS ---
Mr. Hart is a 52-year-old man who was admitted for hypertensive hemorrhage involving the left thala mus with a complete spread into the ventricles. He was taken emergently for surgery given radiologic and neurologic poor status for evacuation of the hematoma intraoperatively. The course went fine. Unfortunately, postoperatively, the patient had significant coagulopathy, likely related to his longs tanding renal disease that led to continued bleeding. The ventricular drain was replaced and a new v entricular drain was placed on the other side, but unfortunately, the patient continued to succumb to his illness. He subsequently from complications related to hypertensive hemorrhage.
== END 2017-08-12 00:14 | disposition expired | DRG 23 ==
LOC: ERS 07:43 → CCU 09:28
PROVIDERS: ADMIT Surgery; ATTEND Surgery
PROC: 0BH17EZ Insertion of Endotracheal Airway into Trachea, Via Natural or Artificial Opening (ICD-10-PCS; principal; 2017-08-10)
PROC: 009600Z Drainage of Cerebral Ventricle with Drainage Device, Open Approach (ICD-10-PCS; 2017-08-10)
PROC: 5A1D70Z Performance of Urinary Filtration, Intermittent, Less than 6 Hours Per Day (ICD-10-PCS; 2017-08-10)
PROC: 5A1945Z Respiratory Ventilation, 24-96 Consecutive Hours (ICD-10-PCS; 2017-08-10)
PROC: 30233R1 Transfusion of Nonautologous Platelets into Peripheral Vein, Percutaneous Approach (ICD-10-PCS; 2017-08-10)
DX: I61.5 Nontraumatic intracerebral hemorrhage, intraventricular (principal); N18.6 End stage renal disease; J96.01 Acute respiratory failure with hypoxia; G81.91 Hemiplegia, unspecified affecting right dominant side; I13.2 Hypertensive heart and chronic kidney disease with heart failure and with stage 5 chronic kidney disease, or end stage renal disease; G91.9 Hydrocephalus, unspecified; D68.9 Coagulation defect, unspecified; E11.22 Type 2 diabetes mellitus with diabetic chronic kidney disease; I50.9 Heart failure, unspecified; Z99.2 Dependence on renal dialysis; Z79.4 Long term (current) use of insulin; M54.9 Dorsalgia, unspecified; G89.29 Other chronic pain; F14.10 Cocaine abuse, uncomplicated; D69.6 Thrombocytopenia, unspecified; D64.9 Anemia, unspecified; B19.20 Unspecified viral hepatitis C without hepatic coma; Z66 Do not resuscitate
CPT/HCPCS: 31500; 36415; 36416; 36430; 51702; 70450; 71045; 80048; 80053; 80306; 81003; 81015; 82553; 82805; 83880; 84443; 84484; 85025; 85610; 85730; 86850; 86900; 86901; 87340; 90935; 93005; 93306; 94002; 94003; 96365; 96375; 99292; A4216; C1713; G0257; J0131; J1165; J1953; J2001; J2060; J2150; J2270; J2370; J2704; J3010; J3370; J3490; J7050; P9035; P9045; Q2009